=== PATIENT | female | born 1970 | race Caucasian/White ===

== ENCOUNTER 2016-06-03 16:58 | Emergency (ER) | payer OTHER ==
[~2016-06-03 16:58] MED LIST: ALBUTEROL17 GM INH; KEFLEX500 M4 PO; NO MEDICATIONS; PREMARIN0.9 M1 PO; SYNTHROID100 MC1 PO; ZITHROMAX250 MG PO
== END 2016-06-03 16:59 ==
LOC: EDMED 16:58
PROC: 0H9FXZZ Drainage of Right Hand Skin, External Approach (ICD-10-PCS; principal; 2016-06-03)
DX: L03.011 Cellulitis of right finger (principal); F17.210 Nicotine dependence, cigarettes, uncomplicated